=== PATIENT | male | born 1995 | race Hispanic/Latino ===

== ENCOUNTER 2021-07-06 12:27 | Emergency (ER) | payer MEDICAID ==
[~2021-07-06] VITALS: Ht 180.3 cm; Wt 72.6 kg
[2021-07-06] MEDS ORDERED: CEFTRIAXONE 500 MG VIAL IM ONE (13:15)
[2021-07-06] MEDS ORDERED: AZITHROMYCIN 250 MG TAB PO ONE (13:30)
== END 2021-07-06 14:10 | disposition home or self-care (01) ==
LOC: ER 13:00
DX: A54.9 Gonococcal infection, unspecified (principal)
CPT/HCPCS: 99283; J0696